=== PATIENT | female | born 1995 | race African-American/Black ===

== ENCOUNTER 2020-01-23 13:31 | Inpatient (IN) ==
[2020-01-23 14:21] LABS: BILIRUBIN,URINE NEGATIVE (NEGATIVE); BLOOD/HEMOGLOBIN,URINE 2+ (NEGATIVE); GLUCOSE, URINE 3+ (NEGATIVE); KETONES,URINE 1+ (NEGATIVE); LEUKOCYTE ESTERASE ,URINE 3+ (NEGATIVE); NITRITES,URINE NEGATIVE (NEGATIVE); PH,URINE 6.5 (5.0 - 8.0); PROTEIN,URINE 2+ (NEGATIVE); UROBILINOGEN,URINE 1+ (NORMAL)
[2020-01-23 14:31] LABS: AMNISURE ROM TEST NO MEMBRANES RUPTURE (NO RUPTURE)
[2020-01-23 14:32] LABS: AMORPHOUS SEDIMENT,UR 1+ /HPF (NEGATIVE); APPEARANCE,URINE CLEAR (CLEAR); BACTERIA,URINE 1+ /HPF (NEGATIVE); COLOR,URINE YELLOW (YELLOW); MUCUS,URINE NUMEROUS /HPF (NEGATIVE); RBC,URINE 0-2 /HPF (0-3); SQUAMOUS EPITHELIAL CELL,UR MANY /HPF (NEGATIVE)
[2020-01-23] MEDS ORDERED: PITOCIN ONE ×2 (14:35→17:45)
[2020-01-23] MEDS ORDERED: BETADINE SOLN ONE (14:36)
[2020-01-23] MEDS ORDERED: D5 1/2 NS 1000 ML 1,000 ML IV ONE (14:36)
[2020-01-23] MEDS ORDERED: D5LR 1L W PITOCIN 10 UNITS/L 10 UNITS/1,000 ML BAG IV ONE (14:37)
[2020-01-23] MEDS ORDERED: D5 1/2 NS 1L W PITOCIN 20 UNITS/L 20 UNITS/1,000 ML BAG IV ONE (14:37)
[2020-01-23] MEDS ORDERED: PHENERGAN INJ 25 MG IM PRN ×2 (14:43→18:36)
[2020-01-23] MEDS ORDERED: PITOCIN IVP ONE (14:43)
[2020-01-23] MEDS ORDERED: MORPHINE SULFATE INJ 2 MG INJ IVP PRN (14:43)
[2020-01-23] MEDS ORDERED: REGLAN INJ 10 MG VIAL IVP PRN (14:43)
[2020-01-23] MEDS ORDERED: D5LR 1L W PITOCIN 10 UNITS/L 10 UNITS/1,000 ML BAG IV PRN (14:43)
[2020-01-23] MEDS ORDERED: STADOL INJ IVP PRN (14:46)
[2020-01-23] MEDS: D5 1/2 NS 1000 ML 1,000 ML IV SCH (14:55)
[2020-01-23 15:18] LABS: BASOPHILS % (AUTO) 0.1 % (0.2-1.0); EOSINOPHILS % (AUTO) 0.4 % (0.9-2.9); HEMATOCRIT 35.7 % (36.0-47.0); HEMOGLOBIN 12.2 g/dL (12.0-16.0); LYMPHOCYTES # (AUTO) 1.5 X10^3/uL (1.3-2.9); LYMPHOCYTES % (AUTO) 27.1 % (21.0-51.0); MEAN CORPUSCULAR HEMOGLOBIN 30.9 pg (27.0-34.0); MEAN CORPUSCULAR HGB CONC 34.3 g/dL (33.0-35.0); MEAN CORPUSCULAR VOLUME 90.2 fL (80.0-100.0); MEAN PLATELET VOLUME 8.4 fL (7.4-11.0); MONOCYTES # (AUTO) 0.8 x10^3/uL (0.3-0.8); NEUTROPHILS # (AUTO) 3.3 x10^3/uL (2.2-4.8); NEUTROPHILS % (AUTO) 58.4 % (42.0-75.0); PLATELET COUNT 199 X10^3/uL (150.0-450.0); RED BLOOD COUNT 3.95 X10^6/uL (3.5-5.4); WHITE BLOOD COUNT 5.6 X10^3/uL (3.6-10.0)
[2020-01-23 15:19] LABS: BLOOD UREA NITROGEN 4 mg/dL (7-18); CALCIUM 8.3 mg/dL (8.5-10.1); CARBON DIOXIDE 23.6 mmol/L (21-32); CHLORIDE 104 mmol/L (98-107); CREATININE 0.66 mg/dL (0.55-1.02); SODIUM 137 mmol/L (136-145); eGFR NON BLACK RACES > 60 (>60)
[2020-01-23] MEDS ORDERED: FENTANYL INJ 100 mcg ONE (15:57)
[2020-01-23] MEDS ORDERED: LR 1000 ML IV 1,000 ML IV ONE (15:57)
[2020-01-23] MEDS ORDERED: FENTANYL 2 mcg/mL-ROPIV 0.1%-NS EPIDURAL 200 ML EPI ONE (16:01)
[2020-01-23] MEDS ORDERED: MOTRIN TAB 800 MG PO PRN (18:36)
[2020-01-23] MEDS ORDERED: MILK OF MAGNESIA PO PRN (19:32)
[2020-01-23] MEDS ORDERED: DERMOPLAST PAIN RELIEF SPRAY TOP PRN (19:32)
[2020-01-23] MEDS ORDERED: ADACEL or BOOSTRIX TDaP VACCINE IM ONE (19:32)
[2020-01-23] MEDS ORDERED: AMBIEN PO PRN (19:32)
[2020-01-23] MEDS ORDERED: BENADRYL INJ 50 MG VIAL IM PRN (20:08)
[2020-01-23] MEDS ORDERED: BENADRYL INJ 50 MG VIAL ONE (20:15)
[2020-01-24] MEDS: D5 1/2 NS 1000 ML 1,000 ML with PITOCIN 20 UNITS IV SCH ×6 (00:42→14:38)
[2020-01-24] MEDS: D5 1/2 NS 1000 ML 1,000 ML IV SCH ×3 (00:43→18:37)
[2020-01-24 06:56] LABS: HEMATOCRIT 34.4 % (36.0-47.0)
--- NOTE | 2020-01-24 07:40 | NOTE.PROOB ---
progress Note OB- Subjective Data Subjective: No complaints, decreased lochia. Tolerating regular diet. No N/V. Ambulating well. No dysuria. Objective Data Result Diagrams: 01/24/20 05:18 01/23/20 14:55 Objective Data: CV= RRR no MRG Lungs=CTA Bilaterally Abd=(+) BS, soft, NTND, Fundus firm/NT/ at { } cm below umbilicus. Ext=no edema, NT, no cords Assessment Assessment: routine pp care Plan (1) Delivery in a completely normal case: Plan: routine pp care and f/u; desires DepoProvera
[2020-01-24] MEDS ORDERED: DEPO-PROVERA CONTRACEPTIVE INJ IM ONE (07:42)
[2020-01-24] MEDS ORDERED: ADACEL or BOOSTRIX TDaP VACCINE IM ONE (07:42)
[2020-01-24] MEDS ORDERED: PRENATAL PLUS PO SCH (09:00)
[2020-01-24 15:42] VITALS: BP 117/67
== END 2020-01-24 20:15 | disposition home or self-care (01) | DRG 807 ==
LOC: ER 13:36 → LD 14:36 → MED/SURG 19:22
PROVIDERS: ADMIT Obstetrics & Gynecology; ATTEND Obstetrics & Gynecology
DX: Z23 Encounter for immunization; Z37.0 Single live birth; O80 Encounter for full-term uncomplicated delivery; Z3A.37 37 weeks gestation of pregnancy
CPT/HCPCS: 36415; 59409; 80048; 81001; 84112; 85014; 85018; 85025; 86592; 86850; 86900; 86901; 90715; 99284; A4216; A4222; J1050; J1200; J2590; J3010; J7120; S0197; S5010